=== PATIENT | male | born 1985 | race Caucasian/White ===

== ENCOUNTER 2022-02-23 07:15 | Emergency (ER) | payer OTHER ==
[2022-02-23 07:21] VITALS: BP 148/83; PULSE 128; RESP 20; TEMP 97.8
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
[2022-02-23] MEDS ORDERED: DIPH,PERTUS(ACELL)TETVAC-LF 0.5 ML VIAL IM ONE (07:47)
== END 2022-02-23 08:00 | disposition home or self-care (01) ==
LOC: EC 07:15
DX: S50.312A Abrasion of left elbow, initial encounter (principal); S50.311A Abrasion of right elbow, initial encounter; S80.211A Abrasion, right knee, initial encounter; Z88.0 Allergy status to penicillin; Z91.030 Bee allergy status; Z23 Encounter for immunization; Y04.8XXA Assault by other bodily force, initial encounter; Y92.239 Unspecified place in hospital as the place of occurrence of the external cause; Y99.0 Civilian activity done for income or pay
CPT/HCPCS: 90471; 90715; 99282